=== PATIENT | male | born 1970 | race Caucasian/White ===

== ENCOUNTER 2022-04-04 01:55 | Emergency (ER) | payer SELFPAY ==
[~2022-04-04] VITALS: Ht 185.4 cm; Wt 90.7 kg
[2022-04-04 01:55] VITALS: BP 145/93
--- NOTE | 2022-04-04 01:55 | NUR ---
CONTRERAS KAPADIA. PT TO CHAIR B
[2022-04-04 02:55] VITALS: BP 138/89
--- NOTE | 2022-04-04 02:55 | NUR ---
PATIENT [facility]PT. PATIENT EXAMINED BY DR. CHOI PATIENT MEDICALLY CLEARED AND RELEASED IN CUSTODY IN STABLE CONDITION. ORIGINAL PRE-BOOK FORM GIVEN TO OFFICER .
== END 2022-04-04 02:55 ==
LOC: MED 01:55
DX: S49.92XA Unspecified injury of left shoulder and upper arm, initial encounter (principal); Z02.89 Encounter for other administrative examinations; V89.2XXA Person injured in unspecified motor-vehicle accident, traffic, initial encounter; Y93.89 Activity, other specified; Y92.89 Other specified places as the place of occurrence of the external cause; Y99.8 Other external cause status
CPT/HCPCS: 99283